=== PATIENT | female | born 1955 | race Two or more races ===

== ENCOUNTER 2016-07-09 19:33 | Emergency (ER) | payer OTHER ==
--- NOTE | 2016-07-11 00:04 | ER ---
ADMIT: 07/09/2016 RM/LOC: ER [facility] MR#: [id number] [place], [place] [id number] [facility] [place] [address] Emergency Room Report SEX: F AGE: 61 : 1955 DATE: 07/09/2016 TIME: 1932 Please refer to my T-sheet for complete H and P. HISTORY OF PRESENT ILLNESS: Briefly, the patient is a 61-year-old, who has been on amoxicillin for the last 4-5 days for a tooth. She got a severe rash, started about 15-20 minutes prior to arrival in the emergency department. It is red all over. It itches. She has no tightness in the throat. No trouble breathing. PHYSICAL EXAMINATION: VITAL SIGNS: Blood pressure 120/53, pulse 106, respirations 22, temp 96.9, saturating 94%. GENERAL: Mild distress. HEENT: She has a rash on her face, but her throat is clear. Nose clear. LUNGS: Clear. SKIN: Diffuse erythematous rash. Warm to the touch. EMERGENCY DEPARTMENT COURSE: I gave her subcu epinephrine, Ativan 0.5 IV, Benadryl 50 mg IV, Decadron 10 IV. Her symptoms improved dramatically. She still had a little bit of rash, but much improved. She was okay with going home. ASSESSMENT: Acute allergic reaction, generalized and significant to penicillin derivative. PLAN: Stop any penicillins, avoid them in the future. Benadryl over-the- counter and prednisone 20 b.i.d. for 4 days. Carlos Lee MD/ monika JOB #: [id number] CC: Carlos Lee MD, Attending Physician UNKNOWN, Family Physician Archie Petersen MD
== END 2016-07-09 21:26 | disposition home or self-care (01) ==
LOC: ER 19:33
DX: L27.0 Generalized skin eruption due to drugs and medicaments taken internally (principal); T36.0X5A Adverse effect of penicillins, initial encounter; I10 Essential (primary) hypertension; F17.210 Nicotine dependence, cigarettes, uncomplicated; Z90.49 Acquired absence of other specified parts of digestive tract